=== PATIENT | male | born 1965 | race Caucasian/White ===

== ENCOUNTER 2018-02-07 11:56 | Emergency (ER) | payer MEDICARE, OTHER ==
[2018-02-07 12:00] VITALS: BP 112/73; PULSE 60; RESP 18; TEMP 98.5
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
[2018-02-07] MEDS ORDERED: LIDOCAINE 1% INJ 10MG/ML (20 ML MDV) SQ ONE (12:15)
[2018-02-07] MEDS ORDERED: SULFAMETHOX-TMP 800-160MG 1 EACH TAB PO STA (12:43)
[2018-02-07] MEDS ORDERED: CEPHALEXIN 500 MG CAP PO STA (12:43)
== END 2018-02-07 13:17 | disposition home or self-care (01) ==
LOC: EC 11:56
DX: L03.312 Cellulitis of back [any part except buttock and flank] (principal); G40.909 Epilepsy, unspecified, not intractable, without status epilepticus; F41.9 Anxiety disorder, unspecified; F17.200 Nicotine dependence, unspecified, uncomplicated; Z79.899 Other long term (current) drug therapy; Z86.14 Personal history of Methicillin resistant Staphylococcus aureus infection
CPT/HCPCS: 99283; 10060; J2001

== ENCOUNTER 2018-02-13 19:46 | Emergency (ER) | payer MEDICARE, OTHER ==
[2018-02-13 20:00] VITALS: RESP 16
[2018-02-13] MEDS ORDERED: KETOROLAC 30 MG/ML 1 ML VIAL IM STA (22:28)
[2018-02-13] MEDS ORDERED: ACET/COD 300 MG/30 MG STARTER PACK 6 TAB BTL PO STA (22:29)
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
[2018-02-13 22:45] VITALS: BP 142/70; PULSE 88; TEMP 98.2
== END 2018-02-13 22:45 | disposition home or self-care (01) ==
LOC: SUPCPDRO 19:46 → EC 19:46
DX: L02.212 Cutaneous abscess of back [any part, except buttock and flank] (principal); F17.200 Nicotine dependence, unspecified, uncomplicated
CPT/HCPCS: 99282; 96372; J1885

== ENCOUNTER 2019-01-13 19:16 | Inpatient (IN) | payer MEDICARE, MEDICAID ==
[2019-01-13] MEDS ORDERED: IPRATROPIUM-ALBUTEROL 3 ML NEB INHALATION STA (20:21)
--- NOTE | 2019-01-13 20:45 | XR ---
EXAMINATION TYPE: XR chest 2V DATE OF EXAM: 01/13/2019 COMPARISON: 12/14/2014 HISTORY: Cough TECHNIQUE: Frontal and lateral views of the chest are obtained. FINDINGS: Heart and mediastinum are normal. Lungs are clear. Diaphragm is normal. Bony thorax is int act. IMPRESSION: Normal chest. No change.
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
[2019-01-13 22:21] LABS: Amphetamine Screen,Urine Not Detected (NotDetected); Barbiturate Screen,Urine Not Detected (NotDetected); Benzodiazepines Screen,Urine Not Detected (NotDetected); Cocaine Screen,Urine Not Detected (NotDetected); Methadone Screen, Urine Not Detected (NotDetected); Opiate Screen,Urine Not Detected (NotDetected); Oxycodone Screen, Urine Not Detected (NotDetected); Phencyclidine Screen,Urine Not Detected (NotDetected); Tricyclic Antidepressant,Urine Not Detected (NotDetected); Urn Cannabinoid Scrn Not Detected (NotDetected)
[2019-01-13] MEDS ORDERED: MAGNESIUM HYDROXIDE 2,400 MG/10 ML CUP PO PRN (22:28)
[2019-01-13] MEDS ORDERED: ZIPRASIDONE 20 MG VIAL IM PRN (22:28)
[2019-01-13] MEDS ORDERED: MAG HYDROX/AL HYDROX/SIMETH 30 ML CUP PO PRN (22:28)
[2019-01-13 22:42] LABS: Appearance,Urine Clear (Clear); Bilirubin,Urine Negative (Negative); Blood,Urine Negative (Negative); Color,Urine Light Yellow; Glucose,Urine (UA) Negative (Negative); Ketones,Urine Negative (Negative); Leukocyte Esterase,Urine Negative (Negative); Nitrite,Urine Negative (Negative); PH, Urine 7.5 (5.0-8.0); Protein,Urine Negative (Negative); Urobilinogen,Urine <2.0 mg/dL (<2.0)
[2019-01-14] MEDS: MIRTAZAPINE 15 MG TAB PO SCH ×2 (00:25→22:06)
[2019-01-14 03:16] VITALS: BMI 19.8
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
[2019-01-14] MEDS: NICOTINE 14MG/24HR PATCH TRANSDERM SCH (09:05)
[2019-01-14] MEDS: ARIPiprazole 2 MG TAB PO SCH (09:05)
[2019-01-14 09:43] LABS: Basophils # (A) 0.1 k/uL (0-0.2); Basophils % (A) 1 %; Eosinophils # (A) 0.5 k/uL (0-0.7); Eosinophils % (A) 7 %; HCT 44.7 % (39.0-53.0); HGB 14.7 gm/dL (13.0-17.5); Lymphocytes % (A) 26 %; MCHC 32.8 g/dL (31.0-37.0); MCV 91.4 fL (80.0-100.0); Mean Platelet Volume 6.9; Monocytes # (A) 0.5 k/uL (0-1.0); Monocytes % (A) 7 %; Neutrophils # (A) 4.6 k/uL (1.3-7.7); Neutrophils % (A) 58 %; Platelet Count 353 k/uL (150-450); RDW 15.7 % (11.5-15.5); WBC 7.9 k/uL (3.8-10.6)
[2019-01-14 09:56] LABS: ALT 19 U/L (21-72); AST 25 U/L (17-59); African American GFR (CKD) >90 (>60 ml/min/1.73 sqM); Albumin 4.5 g/dL (3.5-5.0); Alkaline Phosphatase 71 U/L (38-126); Anion Gap 9 mmol/L; Bilirubin, Delta 0.2 mg/dL (0.0-0.2); Bilirubin,Unconjugated 0.3 mg/dL (0.0-1.1); Blood Urea Nitrogen 16 mg/dL (9-20); Calcium 10.1 mg/dL (8.4-10.2); Carbon Dioxide 30 mmol/L (22-30); Chloride 105 mmol/L (98-107); Cholesterol 159 mg/dL (<200); Glucose 73 mg/dL (74-99); HDL Cholesterol 52 mg/dL (40-60); LDL Cholesterol,Calculated 80 mg/dL (0-99); Potassium 4.7 mmol/L (3.5-5.1); Sodium 144 mmol/L (137-145); Total Bilirubin 0.5 mg/dL (0.2-1.3); Total Protein 7.3 g/dL (6.3-8.2); Triglycerides 136 mg/dL (<150)
[2019-01-14] MEDS: LORazepam 1 MG TAB PO PRN (12:50)
[2019-01-14] MEDS: ACETAMINOPHEN TAB 325 MG TAB PO PRN (12:50)
[2019-01-14 20:30] LABS: Hemoglobin A1C 5.7 % (4.0-6.0)
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
[2019-01-15] MEDS: NICOTINE 14MG/24HR PATCH TRANSDERM SCH ×2 (08:09→10:09)
[2019-01-15] MEDS: ARIPiprazole 2 MG TAB PO SCH (08:09)
--- NOTE | 2019-01-15 09:06 | P.PN ---
Progress Note - Text Interval history: The patient is found in the hallway he follows me to an interview room. He reports he was able to sleep last night. Appetite is improving. He states he had not been eating well for numerous days prior to coming into the hospital. He states that he slept yesterday and did not attend many groups. He plans on attending today. He has no questions or concerns regarding his medication. He had initially verbalizes a desire to go to inpatient chemical dependency treatment but later states he has to make a dental appointment on the to get his dentures. He is giving this further consideration. Mental status exam: The patient is a thin male dressed in hospital gowns. He is wearing his brace on his left hand. Eye contact is appropriate he has a strabismus of his right eye. He indicates his mood is still depressed anxious he still feels hopeless at times. He indicates that he feels safe in [facility]. He reports no homicidal ideation intent or plan. He reports no auditory or visual hallucinations or specific delusions. There is no observed evidence of psychosis. He demonstrates no tangential thinking loose associations or flight of ideas. He does not appear hypomanic or manic. Insight and judgment limited. He maintains a bland affect throughout the session. He has spontaneous speech that is fluent nonpressured. Impressions/plan: Depression, alcohol use disorder, methamphetamine use disorder, the patient will continue on the Remeron and Abilify as written. We will monitor him for safety and encourage participation in the milieu. Vital signs reviewed. We will continue the discussion regarding inpatient chemical dependency treatment. We will continue discussing his options for placement upon discharged mental health unit. He requires continued psychiatric hospitalization.
[2019-01-15] MEDS: MIRTAZAPINE 15 MG TAB PO SCH (20:56)
[2019-01-15] MEDS: ACETAMINOPHEN TAB 325 MG TAB PO PRN (20:56)
--- NOTE | 2019-01-16 09:13 | P.PN ---
Progress Note - Text Interval history: The patient is found in the hallway he follows me to an interview room. He reports that his mood is improving. He feels safe in the hospital. He has no questions or concerns regarding his psychotropic medication. He was able to sleep last night he states he's finally eating more normally. He has been attending groups. He indicates he only missed 1 group yesterday. He continues to have concern as to where he will stay upon discharge. He doesn't know if it safe for him to stay in this area or if he should move back to [place] where he has family members. Mental status exam: The patient is alert he is a thin male he is dressed in his own clothing he has showered. Eye contact is appropriate he has an internal strabismus of the right eye. He is wearing the brace on his left hand. Speech is fluent spontaneous nonpressured. He is pleasant cooperative and easily directed. He is reporting improvement of suicidal thoughts. He reports some decrease and hopelessness thinking. He reports no homicidal ideation intent or plan. He demonstrates no tangential thinking loose associations or flight of ideas. He reports no auditory or visual hallucinations or any specific delusions. There is no observed evidence of psychosis. He is oriented to person place and date. Insight and judgment improving. Impression/plan: Depression, alcohol use disorder, methamphetamine use disorder, the patient will continue on his current psychotropic medication. He appears to be clinically stabilizing. We will continue to encourage his full participation in the milieu. We will monitor him for safety. Vital signs reviewed.
[2019-01-16] MEDS: NICOTINE 14MG/24HR PATCH TRANSDERM SCH (09:30)
[2019-01-16] MEDS: ARIPiprazole 2 MG TAB PO SCH (09:30)
[2019-01-16] MEDS: IPRATROPIUM-ALBUTEROL 3 ML NEB INHALATION PRN ×2 (09:52→21:28)
[2019-01-16] MEDS: LORazepam 1 MG TAB PO PRN (11:59)
[2019-01-16] MEDS: MIRTAZAPINE 15 MG TAB PO SCH (21:42)
[2019-01-17] MEDS: IPRATROPIUM-ALBUTEROL 3 ML NEB INHALATION PRN ×2 (08:52→13:50)
--- NOTE | 2019-01-17 09:25 | P.PN ---
Progress Note - Text Interval history: The patient is found in his room he follows me to an interview room. He indicates he is doing better each day. Appetite has improved. He was reported to have slept 6 hours last night. He had a phone conversation with his girlfriend. He states he is coming to terms with the fact that he made a decision and has to stand by it. He is considering moving back to [place] if needed. He is hoping that a residence has been established for him by his political organizer in [place]. He has no questions or concerns regarding his medication. Mental status exam: The patient is alert he is dressed in his own clothing hygiene is adequate. Eye contact is good speech is fluent spontaneous nonpressured. He reports his mood is improving. Affect is becoming brighter. He denies having any acute suicidal ideation intent or plan is reporting no homicidal ideation intent or plan. There is no observed evidence of psychosis there is no observed evidence of hypomania or mayelin. Insight and judgment improving. He is oriented to person place and date. He demonstrates no verbal or physical aggressiveness or any involuntary repetitive movements. Plan: The patient will continue on his current psychotropic medication. Social work we asked to look into placement options. He may require alf placement. He is under the impression that his political organizer has arranged for an apartment in [place]. We will monitor vital signs. Encouraged to continue participating in the milieu. We will continue monitoring for safety.
[2019-01-17] MEDS: NICOTINE 14MG/24HR PATCH TRANSDERM SCH (09:30)
[2019-01-17] MEDS: ARIPiprazole 2 MG TAB PO SCH (09:31)
[2019-01-17] MEDS: LORazepam 1 MG TAB PO PRN (21:08)
[2019-01-17] MEDS: MIRTAZAPINE 15 MG TAB PO SCH (21:08)
--- NOTE | 2019-01-18 08:22 | PN ---
PROGRESS NOTE DATE OF SERVICE: 01/18/2019 CHIEF COMPLAINT: The patient had depression with suicide thinking. He was hopeless and had a plan of jumping into the [facility]. INTERVAL HISTORY: Patient has been doing fairly well. He had a quiet evening last night. He slept 7 hours last night. Today he has been up. He comes out in the day area. He does interact some with others. He attends about half the groups. He seems to be comfortable in the group setting. He feels that his mood has been improving. He is not voicing thoughts of harm. His main issue at this point is housing of which the social workers have been making an effort to coordinate placement. It is possible that his only option could be a correction. He tolerates his psychotropic medications. MENTAL STATUS: Patient gave good eye contact. Psychomotor activity was a little restless. He answered questions with direct responses. His thoughts were clear. His affect was in a reasonable range. His mood was quiet though not clearly down or depressed. He did not appear to be significantly distressed. ASSESSMENT: I will continue the current diagnosis and treatment plan. I will continue psychotropic medications the same. I reviewed discharge planning issues with the aids social worker in regards to housing. My understanding is that there needs to be some additional followup. I would anticipate the patient being discharged as early as tomorrow if housing issues can be put in place. CARLOS / ELIUN: [phone] /
[2019-01-18] MEDS: ARIPiprazole 2 MG TAB PO SCH (08:57)
[2019-01-18] MEDS: NICOTINE 14MG/24HR PATCH TRANSDERM SCH (09:54)
[2019-01-18] MEDS: IPRATROPIUM-ALBUTEROL 3 ML NEB INHALATION PRN (10:49)
[2019-01-18] MEDS: LORazepam 1 MG TAB PO PRN (16:36)
[2019-01-18] MEDS: ACETAMINOPHEN TAB 325 MG TAB PO PRN (16:36)
[2019-01-18] MEDS: MIRTAZAPINE 15 MG TAB PO SCH (20:20)
[2019-01-19 06:59] VITALS: BP 104/67; PULSE 62; RESP 18; TEMP 97.4
[2019-01-19] MEDS: NICOTINE 14MG/24HR PATCH TRANSDERM SCH (08:38)
[2019-01-19] MEDS: ARIPiprazole 2 MG TAB PO SCH (08:38)
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
== END 2019-01-19 13:13 | disposition home or self-care (01) | DRG 885 ==
LOC: EC 19:16 → 3MHU 22:24
PROVIDERS: ADMIT Psychiatry & Neurology Psychiatry; ATTEND Psychiatry & Neurology Psychiatry
DX: F33.2 Major depressive disorder, recurrent severe without psychotic features (principal); R45.851 Suicidal ideations; G83.24 Monoplegia of upper limb affecting left nondominant side; F15.10 Other stimulant abuse, uncomplicated; F17.200 Nicotine dependence, unspecified, uncomplicated; F10.21 Alcohol dependence, in remission; H50.9 Unspecified strabismus; G40.909 Epilepsy, unspecified, not intractable, without status epilepticus; H54.61 Unqualified visual loss, right eye, normal vision left eye; Z59.0 Homelessness; Z79.899 Other long term (current) drug therapy
CPT/HCPCS: 71046; 80053; 80061; 80306; 81003; 82075; 82248; 83036; 84443; 85025; 94640; 99285

== ENCOUNTER 2019-01-20 05:49 | Inpatient (IN) | payer MEDICARE, OTHER ==
[2019-01-20] MEDS ORDERED: SODIUM CHLORIDE 0.9% 1,000 ML IV STA (06:19)
[2019-01-20 06:43] LABS: Basophils # (A) 0.1 k/uL (0-0.2); Basophils % (A) 1 %; Eosinophils # (A) 0.1 k/uL (0-0.7); Eosinophils % (A) 1 %; HCT 41.9 % (39.0-53.0); HGB 14.7 gm/dL (13.0-17.5); Lymphocytes # (A) 2.5 k/uL (1.0-4.8); Lymphocytes % (A) 20 %; MCH 30.6 pg (25.0-35.0); MCHC 35.1 g/dL (31.0-37.0); MCV 87.1 fL (80.0-100.0); Mean Platelet Volume 6.4; Monocytes # (A) 0.8 k/uL (0-1.0); Monocytes % (A) 6 %; Neutrophils # (A) 8.7 k/uL (1.3-7.7); Neutrophils % (A) 70 %; Platelet Count 370 k/uL (150-450); RBC 4.81 m/uL (4.30-5.90); RDW 13.5 % (11.5-15.5); WBC 12.5 k/uL (3.8-10.6)
[2019-01-20] MEDS ORDERED: diphenhydrAMINE 50 MG/ML 1 ML VIAL IVP STA (06:44)
[2019-01-20] MEDS ORDERED: LORazepam 2 MG/ML INJ IV STA ×2 (06:44→15:54)
[2019-01-20 06:50] LABS: ALT 25 U/L (21-72); AST 43 U/L (17-59); Acetaminophen <10.0 ug/mL; African American GFR (CKD) >90 (>60 ml/min/1.73 sqM); Albumin 5.2 g/dL (3.5-5.0); Alkaline Phosphatase 86 U/L (38-126); Anion Gap 13 mmol/L; Blood Urea Nitrogen 17 mg/dL (9-20); Calcium 9.7 mg/dL (8.4-10.2); Carbon Dioxide 28 mmol/L (22-30); Chloride 101 mmol/L (98-107); Glucose 72 mg/dL (74-99); Potassium 3.5 mmol/L (3.5-5.1); Salicylate <1.0 mg/dL; Sodium 142 mmol/L (137-145); Total Bilirubin 0.7 mg/dL (0.2-1.3); Total Protein 8.4 g/dL (6.3-8.2)
[2019-01-20 06:53] LABS: Alcohol 194 mg/dL
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
[2019-01-20] MEDS ORDERED: SODIUM CHLORIDE 0.9% 1,000 ML IV ONE ×2 (06:58→15:39)
[2019-01-20] MEDS ORDERED: SODIUM CHLORIDE 0.9% 1,000 ML with MVI, ADULT NO.4 WITH VIT K 10 ML, THIAMINE 100 MG, F... IV ONE ×4 (07:45)
[2019-01-20 09:25] LABS: Glucose,Whole Blood 92 mg/dL (75-99)
[2019-01-20] MEDS ORDERED: METOCLOPRAMIDE 5 MG/ML 2 ML VIAL IVP STA (09:44)
[2019-01-20 12:01] LABS: Amphetamine Screen,Urine Not Detected (NotDetected); Barbiturate Screen,Urine Not Detected (NotDetected); Benzodiazepines Screen,Urine Detected (NotDetected); Cocaine Screen,Urine Not Detected (NotDetected); Methadone Screen, Urine Not Detected (NotDetected); Opiate Screen,Urine Not Detected (NotDetected); Oxycodone Screen, Urine Not Detected (NotDetected); Phencyclidine Screen,Urine Not Detected (NotDetected); Tricyclic Antidepressant,Urine Not Detected (NotDetected); Urn Cannabinoid Scrn Not Detected (NotDetected)
[2019-01-20 16:01] LABS: Amorphous Sediment,Urine Moderate /hpf; Appearance,Urine Turbid (Clear); Bilirubin,Urine Negative (Negative); Blood,Urine Negative (Negative); Color,Urine Yellow; Glucose,Urine (UA) Negative (Negative); Ketones,Urine Negative (Negative); Leukocyte Esterase,Urine Negative (Negative); Mucus,Urine Rare /hpf; Nitrite,Urine Negative (Negative); PH, Urine 5.5 (5.0-8.0); Protein,Urine Negative (Negative); Specific Gravity,Urine 1.016 (1.001-1.035); Urobilinogen,Urine <2.0 mg/dL (<2.0)
[2019-01-20] MEDS ORDERED: NALOXONE 0.4 MG/ML 1 ML VIAL IV PRN (16:12)
[2019-01-20] MEDS ORDERED: LORazepam 2 MG/ML INJ IV PRN ×3 (16:14)
[2019-01-20] MEDS ORDERED: THIAMINE 100 MG/ML 2 ML VIAL IM STA (16:14)
[2019-01-20] MEDS: THIAMINE 100 MG TAB PO SCH (18:16)
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
[2019-01-21 05:39] VITALS: BMI 17.2
[2019-01-21] MEDS: THIAMINE 100 MG TAB PO SCH ×2 (06:36→17:22)
[2019-01-21 07:24] LABS: Basophils # (A) 0.1 k/uL (0-0.2); Basophils % (A) 1 %; Eosinophils # (A) 0.5 k/uL (0-0.7); Eosinophils % (A) 5 %; HCT 38.8 % (39.0-53.0); HGB 13.2 gm/dL (13.0-17.5); Lymphocytes # (A) 2.1 k/uL (1.0-4.8); Lymphocytes % (A) 23 %; MCH 30.3 pg (25.0-35.0); MCV 89.2 fL (80.0-100.0); Mean Platelet Volume 6.7; Monocytes # (A) 0.6 k/uL (0-1.0); Monocytes % (A) 6 %; Neutrophils # (A) 5.9 k/uL (1.3-7.7); Neutrophils % (A) 64 %; Platelet Count 316 k/uL (150-450); RBC 4.35 m/uL (4.30-5.90); RDW 13.7 % (11.5-15.5); WBC 9.2 k/uL (3.8-10.6)
[2019-01-21 07:28] LABS: ALT 29 U/L (21-72); AST 37 U/L (17-59); African American GFR (CKD) >90 (>60 ml/min/1.73 sqM); Albumin 3.9 g/dL (3.5-5.0); Alkaline Phosphatase 62 U/L (38-126); Anion Gap 9 mmol/L; Blood Urea Nitrogen 15 mg/dL (9-20); Calcium 9.4 mg/dL (8.4-10.2); Carbon Dioxide 28 mmol/L (22-30); Chloride 105 mmol/L (98-107); Glucose 124 mg/dL (74-99); Potassium 4.1 mmol/L (3.5-5.1); Sodium 142 mmol/L (137-145); Total Bilirubin 0.7 mg/dL (0.2-1.3); Total Protein 6.4 g/dL (6.3-8.2)
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
[2019-01-21] MEDS ORDERED: MIRTAZAPINE 15 MG TAB PO SCH (22:45)
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
[2019-01-22] MEDS: THIAMINE 100 MG TAB PO SCH (06:49)
[2019-01-22 08:00] VITALS: BP 108/73; PULSE 80; RESP 16; TEMP 97
[2019-01-22] MEDS ORDERED: ARIPiprazole 2 MG TAB PO SCH (09:00)
== END 2019-01-22 11:48 | disposition home or self-care (01) | DRG 918 ==
LOC: EC 05:49 → 3SCARD 16:12
PROVIDERS: ADMIT Internal Medicine; ATTEND Internal Medicine
DX: T43.592A Poisoning by other antipsychotics and neuroleptics, intentional self-harm, initial encounter (principal); E87.2 Acidosis; T43.022A Poisoning by tetracyclic antidepressants, intentional self-harm, initial encounter; Z91.5 Personal history of self-harm; M50.30 Other cervical disc degeneration, unspecified cervical region; F32.9 Major depressive disorder, single episode, unspecified; F41.9 Anxiety disorder, unspecified; G40.909 Epilepsy, unspecified, not intractable, without status epilepticus; D72.829 Elevated white blood cell count, unspecified; G89.29 Other chronic pain; M54.9 Dorsalgia, unspecified; F17.210 Nicotine dependence, cigarettes, uncomplicated; F15.11 Other stimulant abuse, in remission; F10.21 Alcohol dependence, in remission; Z71.6 Tobacco abuse counseling; Z79.899 Other long term (current) drug therapy; Z59.0 Homelessness; Z86.14 Personal history of Methicillin resistant Staphylococcus aureus infection; Z87.820 Personal history of traumatic brain injury
CPT/HCPCS: 36415; 80053; 80306; 80320; 80329; 81001; 82075; 83520; 83605; 83735; 84484; 85025; 93005; 96361; 96365; 96366; 96372; 96375; 96376; 99285

== ENCOUNTER 2022-10-24 18:14 | Emergency (ER) | payer MEDICARE, OTHER ==
--- NOTE | 2022-10-24 20:22 | XR ---
PROCEDURE: XR ribs LT w pa chest xray - 5V DATE AND TIME: 10/24/2022 8:04 PM CLINICAL INDICATION: lt lower pain; fall TECHNIQUE: 5 views were obtained COMPARISON: None FINDINGS: There are mildly-displaced left 9th and 10th rib fractures laterally, with an associated small left p leural effusion. There is no left pneumothorax. There are no other fractures. No other acute findings. IMPRESSION: Left lateral 9th and 10th rib fractures.
[2022-10-24] MEDS ORDERED: IBUPROFEN 600 MG TAB PO STA (21:20)
[2022-10-24] MEDS ORDERED: HYDROcodone/APAP 5-325MG 1 EACH TAB PO STA (21:20)
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
[2022-10-24] MEDS ORDERED: HYDROmorphone 0.5 MG/0.5 ML SYRINGE IM STA (22:26)
[2022-10-25 00:16] VITALS: BP 148/94; PULSE 82; RESP 18; TEMP 97.6
== END 2022-10-25 00:16 | disposition home or self-care (01) ==
LOC: EC 18:14
DX: S22.42XA Multiple fractures of ribs, left side, initial encounter for closed fracture (principal); F17.200 Nicotine dependence, unspecified, uncomplicated; F12.90 Cannabis use, unspecified, uncomplicated; Z86.59 Personal history of other mental and behavioral disorders; W01.190A Fall on same level from slipping, tripping and stumbling with subsequent striking against furniture, initial encounter; Y92.009 Unspecified place in unspecified non-institutional (private) residence as the place of occurrence of the external cause
CPT/HCPCS: 71101; 99283; 96372; J1170

== ENCOUNTER 2022-11-09 04:38 | Emergency (ER) | payer MEDICARE, OTHER ==
[2022-11-09] MEDS ORDERED: LIDOCAINE 5% PATCH TOPICAL STA (04:45)
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
[2022-11-09 04:49] VITALS: TEMP 98.1
[2022-11-09 05:48] VITALS: BP 133/84; PULSE 80; RESP 20
--- NOTE | 2022-11-09 06:39 | XR ---
EXAMINATION TYPE: XR chest 2V DATE OF EXAM: 11/09/2022 4:59 AM COMPARISON: Chest radiographs from 10/24/2022 TECHNIQUE: XR chest 2V view. CLINICAL INDICATION:Male, 57 years old with history of dyspnea; FINDINGS: Lungs/Pleura: There is no evidence of pleural effusion, focal consolidation, or pneumothorax. Chroni c senescent parenchymal change. Pulmonary vascularity: Unremarkable. Heart/mediastinum: Cardiomediastinal silhouette is unremarkable. Atherosclerotic calcifications are seen in the aorta. Musculoskeletal: Redemonstration of minimally displaced left lateral ninth and 10th rib fractures. No callus formation identified. Partial visualization of cervical fusion hardware. IMPRESSION: 1. No acute cardiopulmonary disease/process. 2. Redemonstration of minimally displaced left lateral ninth and 10th rib fractures. No callus forma tion identified. No pneumothorax.
== END 2022-11-09 05:51 | disposition home or self-care (01) ==
LOC: EC 04:38
DX: S22.42XA Multiple fractures of ribs, left side, initial encounter for closed fracture (principal); F17.200 Nicotine dependence, unspecified, uncomplicated; F12.90 Cannabis use, unspecified, uncomplicated; Z86.59 Personal history of other mental and behavioral disorders; W06.XXXA Fall from bed, initial encounter
CPT/HCPCS: 71046; 93005; 99283

== ENCOUNTER 2023-02-23 15:02 | Emergency (ER) | payer MEDICARE, OTHER ==
[2023-02-23 15:26] VITALS: PULSE 83; TEMP 99.1
[2023-02-23] MEDS ORDERED: oxyCODONE-APAP 10-325MG 1 EACH TAB PO STA (15:31)
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
[2023-02-23] MEDS ORDERED: KETOROLAC 15 MG/ML 1 ML VIAL IM STA (15:32)
--- NOTE | 2023-02-23 16:20 | XR ---
Right humerus. HISTORY: Pain. COMPARISON: None TECHNIQUE: 3 views the right humerus were obtained. FINDINGS: There is no fracture or focal intraosseous abnormality. There is no cortical destruction or periostea l reaction. There are no soft tissue abnormalities. IMPRESSION: No significant abnormality seen.
--- NOTE | 2023-02-23 16:36 | CT ---
EXAMINATION TYPE: CT cervical spine wo con DATE OF EXAM: 02/23/2023 COMPARISON: None HISTORY: neck pain/burning and down right arm x2 weeks CT DLP: 268.1 mGycm Automated exposure control for dose reduction was used. TECHNIQUE: CT scan of the cervical spine is obtained without contrast, axial images are obtained, sa gittal and coronal reformatted images are also reviewed. FINDINGS: The craniovertebral junction relationships and prevertebral soft tissues are normal. There is anterior metallic and interdisc fusion at the C5-6 level. Allograft the vertebral segments a re normal in height and alignment and there is no fracture or subluxation. There is mild to moderate disc space narrowing and spondylosis at the C6-7 level indicating mild to m oderate degenerative disease. There is mild spondylosis at the C2-3 C4-5 levels indicating mild degen erative disc disease. There is mild osteoarthritic change of the facets and uncovertebral joints in the mid lower cervical spine. There is mild bony neural foraminal encroachment at C6-7 on the right and moderate bony neural forami nal encroachment at C6-7 on the left. There is no significant bony encroachment of the cervical canal . The paraspinal soft tissues unremarkable. IMPRESSION: 1. Postsurgical changes at the C5-6 level as described above. 2. Mild to moderate degenerative disc disease and osteoarthritic change as described above. 3. Bilateral bony neural foraminal encroachment at C6-7, left greater than right as described above.
[2023-02-23 18:19] VITALS: BP 114/82; RESP 18
== END 2023-02-23 18:08 | disposition home or self-care (01) ==
LOC: EC 15:02
DX: S16.1XXA Strain of muscle, fascia and tendon at neck level, initial encounter (principal); M54.12 Radiculopathy, cervical region; M50.30 Other cervical disc degeneration, unspecified cervical region; F12.90 Cannabis use, unspecified, uncomplicated; F17.200 Nicotine dependence, unspecified, uncomplicated; Z86.59 Personal history of other mental and behavioral disorders; X58.XXXA Exposure to other specified factors, initial encounter
CPT/HCPCS: 73060; 72125; 99284; 96372; J1885

== ENCOUNTER 2023-05-29 00:51 | Inpatient (IN) | payer MEDICARE, OTHER ==
[2023-05-29 01:03] LABS: Glucose,Whole Blood 101 mg/dL (70-110)
[2023-05-29] MEDS ORDERED: PROPOFOL 10 MG/ML 20 ML VIAL IV ONE ×3 (01:03→06:23)
[2023-05-29] MEDS ORDERED: MORPHINE SULFATE 4 MG/ML SYRINGE IVP STA (01:04)
[2023-05-29 01:19] LABS: Basophils # (A) 0.1 k/uL (0-0.2); Basophils % (A) 0 %; Eosinophils # (A) 0.2 k/uL (0-0.7); Eosinophils % (A) 1 %; HGB 14.6 gm/dL (13.0-17.5); Lymphocytes # (A) 2.1 k/uL (1.0-4.8); Lymphocytes % (A) 12 %; MCH 31.1 pg (25.0-35.0); MCHC 33.8 g/dL (31.0-37.0); MCV 91.8 fL (80.0-100.0); Mean Platelet Volume 7.6; Monocytes # (A) 0.5 k/uL (0-1.0); Monocytes % (A) 3 %; Neutrophils # (A) 14.1 k/uL (1.3-7.7); Neutrophils % (A) 82 %; Platelet Count 360 k/uL (150-450); RBC 4.69 m/uL (4.30-5.90); RDW 12.8 % (11.5-15.5); WBC 17.1 k/uL (3.8-10.6)
[2023-05-29 01:32] LABS: ALT 21 U/L (4-49); AST 36 U/L (17-59); African American GFR (CKD) >90 (>60 ml/min/1.73 sqM); Albumin 5.1 g/dL (3.5-5.0); Alkaline Phosphatase 123 U/L (38-126); Anion Gap 16 mmol/L; Blood Urea Nitrogen 11 mg/dL (9-20); Calcium 9.4 mg/dL (8.4-10.2); Carbon Dioxide 18 mmol/L (22-30); Chloride 101 mmol/L (98-107); Glucose 100 mg/dL (74-99); Non-African American GFR(CKD) >90 (>60 ml/min/1.73 sqM); Potassium 4.3 mmol/L (3.5-5.1); Sodium 135 mmol/L (137-145); Total Bilirubin 0.4 mg/dL (0.2-1.3); Total Protein 8.2 g/dL (6.3-8.2)
--- NOTE | 2023-05-29 01:46 | XR ---
EXAM: XR Left Ankle Complete, 3 or More Views CLINICAL HISTORY: ITS.REASON XR Reason: open fracture TECHNIQUE: Frontal, lateral and oblique views of the left ankle. COMPARISON: No relevant prior studies available. FINDINGS: Bones/joints: There is a moderately displaced fracture of the bilateral malleoli with dislocation of the tibiotalar joint. Soft tissues: Subcutaneous air over the anterior tibia. IMPRESSION: Dislocation of the tibiotalar joint. Recommend color Doppler evaluation of the distal arteries. Moderate displaced fractures of the bilateral malleoli
--- NOTE | 2023-05-29 02:00 | CT ---
EXAM: CT Head Without Intravenous Contrast CLINICAL HISTORY: ITS.REASON CT Reason: fall, possible head injury TECHNIQUE: Axial computed tomography images of the head/brain without intravenous contrast. CTDI is 45.2 mGy and DLP is 999 mGy-cm. This CT exam was performed using one or more of the following dose reduction techniques: automated exposure control, adjustment of the mA and/or kV according to patient size, and/or use of iterative reconstruction technique. COMPARISON: No relevant prior studies available. FINDINGS: Brain: Unremarkable. No hemorrhage. No significant white matter disease. No edema. Ventricles: Unremarkable. No ventriculomegaly. Bones/joints: Remote nasal bone fracture deformities. No acute fracture. Soft tissues: Unremarkable. Sinuses: Chronic maxillary and ethmoid sinusitis. No acute sinusitis. Mastoid air cells: Unremarkable as visualized. No mastoid effusion. IMPRESSION: No evidence of acute intracranial pathology. EXAM: CT Cervical Spine Without Intravenous Contrast CLINICAL HISTORY: ITS.REASON CT Reason: fall, possible head injury TECHNIQUE: Axial computed tomography images of the cervical spine without intravenous contrast. CTDI is 10.3 mGy and DLP is 301.6 mGy-cm. This CT exam was performed using one or more of the following dose reduction techniques: automated exposure control, adjustment of the mA and/or kV according to patient size, and/or use of iterative reconstruction technique. COMPARISON: No relevant prior studies available. FINDINGS: Vertebrae: Status post anterior fusion of C5 and C6 with expected postsurgical changes. No acute fracture. Discs/spinal canal/neural foramina: No acute findings. Congenitally narrow spinal canal. Critical spinal canal stenosis at C4-5 and C6-7. Soft tissues: Prominent cervical lymph nodes. Mild centrilobular emphysematous changes. IMPRESSION: No evidence of acute cervical spine pathology. Critical spinal canal stenosis at C4-5 and C6-7. Recommend MRI of the cervical spine to evaluate for myelopathy.
[2023-05-29] MEDS ORDERED: NALOXONE 0.4 MG/ML 1 ML VIAL IV PRN ×2 (02:56→08:17)
[2023-05-29] MEDS ORDERED: MORPHINE SULFATE 4 MG/ML SYRINGE IV PRN (02:56)
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
[2023-05-29] MEDS ORDERED: LORazepam 1 MG TAB PO PRN (03:08)
[2023-05-29] MEDS ORDERED: LORazepam 2 MG/ML INJ IV PRN (03:08)
[2023-05-29] MEDS ORDERED: THIAMINE 100 MG/ML 2 ML VIAL IM STA (03:08)
[2023-05-29] MEDS: SODIUM CHLORIDE 0.9% 1,000 ML IV SCH ×5 (03:14→23:47)
--- NOTE | 2023-05-29 04:24 | XR ---
EXAM: XR Left Ankle Complete, 3 or More Views CLINICAL HISTORY: XR Reason: post reduction TECHNIQUE: Frontal, lateral and oblique views of the left ankle. COMPARISON: No relevant prior studies available. FINDINGS: Bones/joints: Oblique fracture of the distal fibula angling 2.4 cm superiorly from the level of the tibial plafond and with 5 mm posterior displacement of the distal fracture fragment. Near anatomic alignment of medial malleolus fracture post reduction. The ankle mortise is well aligned post splinting. Soft tissues: Probable gas in the soft tissues over the ankle suggesting open fracture or laceration. No foreign body is seen. Fine detail is obscured by splint material. IMPRESSION: 1. Oblique fracture of the distal fibula angling 2.4 cm superiorly from the level of the tibial plafond and with 5 mm posterior displacement of the distal fracture fragment. 2. Near anatomic alignment of medial malleolus fracture post reduction. The ankle mortise is well aligned post splinting. 3. Probable gas in the soft tissues over the ankle suggesting open fracture or laceration. No foreign body is seen. Fine detail is obscured by splint material.
[2023-05-29] MEDS ORDERED: VANCOMYCIN 1,000 MG in SODIUM CHLORIDE 0.9% 250 ML IVPB PRN (06:00)
[2023-05-29] MEDS ORDERED: fentaNYL (PF) 50 MCG/ML 2 ML AMP ONE (06:23)
[2023-05-29] MEDS ORDERED: SUCCINYLCHOLINE CHLORIDE 200 MG/10 ML VIAL IV ONE (06:23)
[2023-05-29] MEDS ORDERED: PHENYLEPHRINE 10 MG/ML VIAL ONE (06:23)
[2023-05-29] MEDS ORDERED: LIDOCAINE 1% INJ 10MG/ML (20 ML MDV) ONE (06:23)
[2023-05-29] MEDS ORDERED: GLYCOPYRROLATE 0.2 MG/ML 2 ML VIAL ONE (06:23)
[2023-05-29] MEDS ORDERED: ROCURONIUM 10 MG/ML (5 ML VIAL) IV ONE (06:23)
[2023-05-29] MEDS ORDERED: DEXAMETHASONE SOD PHOSPHATE 4 MG/ML 1 ML VIAL ONE (06:23)
[2023-05-29] MEDS ORDERED: NEOSTIGMINE 1 MG/ML 10 ML VIAL ONE (06:23)
[2023-05-29] MEDS ORDERED: HYDROmorphone (PF) 1 MG/ML ONE (06:23)
[2023-05-29] MEDS ORDERED: ONDANSETRON 4 MG/2 ML VIAL ONE (06:23)
[2023-05-29] MEDS ORDERED: IV FLUID CONTINUATION 900 ML IV ONE (06:28)
[2023-05-29] MEDS ORDERED: VANCOMYCIN 1,000 MG VIAL IVPB ONE (07:14)
[2023-05-29] MEDS ORDERED: LACTATED RINGERS 1,000 ML IV ONE ×3 (07:58→10:30)
--- NOTE | 2023-05-29 08:13 | FL ---
EXAMINATION TYPE: FL guidance operating room, XR ankle complete RT Intraoperative/procedural fluorosc opic services were provided. Total fluoroscopy time is 31.7 seconds with a total of 5 submitted image s to PACS. Please see the operative/procedural note for further details. DAP: 0.6899 Gycm2
[2023-05-29] MEDS ORDERED: diazePAM 5 MG TAB PO PRN (08:16)
[2023-05-29] MEDS ORDERED: HYDROmorphone 0.5 MG/0.5 ML SYRINGE IVP PRN (08:16)
[2023-05-29] MEDS ORDERED: ONDANSETRON 4 MG/2 ML VIAL IVP PRN (08:19)
[2023-05-29] MEDS ORDERED: HYDROmorphone 0.5 MG/0.5 ML SYRINGE IVP ONE (08:26)
[2023-05-29] MEDS ORDERED: DULoxetine HCL 30 MG CAPSULE.DR PO SCH (08:30)
--- NOTE | 2023-05-29 08:43 | P.OP ---
Date of Procedure: 05/29/23 Preoperative Diagnosis: Grade 2 open fracture dislocation left ankle, traumatic due to fall Bimalleolar grade 2 open open ankle fracture Postoperative Diagnosis: Same Anesthesia: GETA Pathology: none sent Condition: stable Disposition: PACU Description of Procedure: BRIEF OPERATIVE NOTE Preoperative Diagnosis: Grade 2 open fracture dislocation left ankle, traumatic due to fall Bimalleolar grade 2 open open ankle fracture Postoperative Diagnosis: Same Procedure: Irrigation and excisional debridement of grade 2 open left ankle fracture at the 5 cm open wound at the medial aspect of the ankle Open reduction internal fixation of right distal fibula and tibia fracture Use of fluoroscopic guidance Surgeon: Dr. Baca Is Architect: assistant professor in family studies who is present throughout the entire the case persistence during positioning, dissection, exposure, visualization, and all crucial elements of the case as well as closure. Anesthesia: General anesthesia Estimated blood loss: Less than 75 mL Tourniquet time: None Specimen: None Complications: None apparent Components implanted: Synthes small frag one third semitubular plate with 8 screws with comminution of 3.5 cortical and 4.0 cancellus screws 2 Disposition: To recovery room in good stable condition. OPERATIVE INDICATIONS The patient had an acute injury today when he slipped and fell on the ice. Apparently the patient was severely intoxicated with a blood alcohol level greater than 380. He was at home when he fell and was walking on a fracture dislocation when his friend noticed that he was bleeding severely. He presented to the emergency room was open ankle fracture dislocation. He had closed reduction of the dislocation in the emergency room by the ER staff appropriate ly. He was splinted and we're involved in the case. He had a very obvious open fracture with approximately 5 cm laceration transversely at the level of the medial malleolus. He had neurovascular status intact at his ankle foot and toes. He was able to answer questions appropriately. He had not had any pain or issues prior to her fall. He had obvious displaced displacement and comminuted fracture at the lateral malleolus with displacement medial malleolus as well. I discussed the risk of occasions alternatives and benefits of surgery in relation to the injury. I tried to explain patient the severity of his injury particularly in regards the open nature of his chronic alcohol use. He open fracture significant increase the possibility of consultations including nonunion malunion infection and severe debility and his left lower extremity left ankle. There is severe comminution as well and it is going to be difficult to get this to heal given the open nature and his medical status. I discussed the risk of bleeding risk and infection risk and need for further surgery risk of decreased loss of motion loss function malunion nonunion hardware failure nerve damage as well as, occasions with surgery were explained. I answered her questions best my ability and he elected proceed with surgical intervention. OPERATIVE SUMMARY After discussing all the risks, patient alternatives and benefits at length, the patient elected to proceed with surgical intervention, signed informed consent, and presented for their procedure. The patient was seen and examined in the preoperative holding area and the surgical site was marked. The patient was given antibiotics and brought to the operating room. The patient was sedated and intubated by anesthesia in standard fashion. The patient was positioned on to the operating room table in a supine position with a pad under the left hip. We were careful to pad any bony prominences and pressure points. We were careful to maintain the patient's cervical spine and good neutral alignment and position throughout. We used C-arm machines to establish fluoroscopic guidance in AP and lateral positions. We were able to localize the fractures appropriately. The patient was prepped and draped in a normal standard fashion. An appropriate timeout and keystone protocol performed. We were able to proceed with the surgery. The open fracture was very obvious. There was slowly using blood at the area. There is some denuded tissue around the margins of the scan and this was excised and removed. The laceration is approximately 5-6 cm. The medial malleolus had obvious displacement. I was able to expose into the fracture site and into the joint itself. The wound was then copiously irrigated and suctioned dry with greater than 3 L of antibiotic irrigation. With the area cleaned appropriately and was able to be reduced the medial malleolus. I turned my attention to the lateral malleolus. An incision was made over the lateral aspect of the ankle and I dissected down to the distal fibula appropriately. The fracture was obvious and I was able to mobilize some of the fragments and elevated some of the periosteum leaving as much is intact as possible. There was significant comminution with multiple small fragments and bone loss particularly at the lateral aspect of the fibula around the fracture site. The main fragments were mobilized and brought to position. I performed a gentle reduction techniques in order to get the fractures well aligned and use of bone clamp to get good provisional fixation. There was significant bone loss at the lateral aspect but good overall alignment and position. Multiple small fragments were devascularized and not able to be incorporated. This was confirmed with C-arm guidance. I was then able to measure and position a one third semitubular 8 hole plate and contoured appropriately over the distal fibula and over the fracture site proximally and distally. There was no way to establish an interfragmentary screw. I was able to position the plate and get adequate alignment of the fracture fragments proximally distally and within the fracture itself. I was able to start placing the plate in place. I was able to remove the bone clamp in place the plate laterally and placed cortical screws proximally and cancellous screws distally to get excellent fixation at a near anatomic position. This was confirmed with C-arm guidance. The fibula was out to length and stabilized. We turned my attention to the medial malleolus. I had good reduction at the medial malleolus in near anatomic position. I was able establish a small stab incision and place the guide pins through the distal tip the medial malleolus across fractured ends to the distal tibia. These were drilled with cannulated drill and cannulated screws were placed 2 with good fixation and good stability at the medial malleolus being able to avoid the joint space. With medial and lateral fixation establish and then was able to test and stress the ankle to evaluate for any syndesmotic disruption. I performed medial and lateral varus and valgus stress at the ankle after fixation was performed and there is no evidence of any widening or displacement of the syndesmosis or the ankle mortise. I do not feel we needed any further fixation. We were able to proceed with closure. Deep layers were closed with 2-0 Vicryl subcu tissues closed 2-0 Vicryl and skin was closed with jose on the lateral side. On the medial side at the open wound I used 2-0 PDS at the subcutanius tissue and then used 3-0 nylon for horizontal mattress stitches for the skin The wound was cleaned and dried and dressed with the appropriate dressing. We used a bulky Ritchie dressing with bilateral and posterior support. I placed a sugar tong and posterior mold well-padded well molded splint at the right lower leg. The drapes were broken down. The patient was gently rolled back onto their hospital bed being careful to maintain their cervical spine and good neutral alignment and position. They were woken up by anesthesia, extubated, and brought to the recovery room in good stable condition. The patient will need IV antibiotics for at least the next 48 hours due to the open fracture. The patient will be able to be admitted to the hospital for prolonged antibiotics reviewed twice a day for at least 48 hours, appropriate management and care with strict nonweightbearing left lower extremity, and for appropriate postoperative care, medical management and monitoring. He will need close observation for potential alcohol withdrawal and medicine is seeing him for this and for medical management. We will continue to follow them closely about the postoperative course. .
--- NOTE | 2023-05-29 09:17 | ED ---
Medical Decision Making - Lab Data Result diagrams: 05/29/23 01:06 05/29/23 01:06 Lab Results 05/29/23 05/29/23 05/29/23 Range/Units 01:02 01:06 01:06 WBC 17.1 H (3.8-10.6) k/uL RBC 4.69 (4.30-5.90) m/uL Hgb 14.6 (13.0-17.5) gm/dL Hct 43.0 (39.0-53.0) % MCV 91.8 (80.0-100.0) fL MCH 31.1 (25.0-35.0) pg MCHC 33.8 (31.0-37.0) g/dL RDW 12.8 (11.5-15.5) % Plt Count 360 (150-450) k/uL MPV 7.6 Neutrophils % 82 % Lymphocytes % 12 % Monocytes % 3 % Eosinophils % 1 % Basophils % 0 % Neutrophils # 14.1 H (1.3-7.7) k/uL Lymphocytes # 2.1 (1.0-4.8) k/uL Monocytes # 0.5 (0-1.0) k/uL Eosinophils # 0.2 (0-0.7) k/uL Basophils # 0.1 (0-0.2) k/uL Sodium 135 L (137-145) mmol/L Potassium 4.3 (3.5-5.1) mmol/L Chloride 101 (98-107) mmol/L Carbon Dioxide 18 L (22-30) mmol/L Anion Gap 16 mmol/L BUN 11 (9-20) mg/dL Creatinine 0.85 (0.66-1.25) mg/dL Est GFR (CKD-EPI)AfAm >90 (>60 ml/min/1.73 sqM) Est GFR (CKD-EPI)NonAf >90 (>60 ml/min/1.73 sqM) Glucose 100 H (74-99) mg/dL POC Glucose (mg/dL) 101 (70-110) mg/dL POC Glu Merchandise Flow Manager ID Owen Myrick Calcium 9.4 (8.4-10.2) mg/dL Total Bilirubin 0.4 (0.2-1.3) mg/dL AST 36 (17-59) U/L ALT 21 (4-49) U/L Alkaline Phosphatase 123 (38-126) U/L Total Protein 8.2 (6.3-8.2) g/dL Albumin 5.1 H (3.5-5.0) g/dL Serum Alcohol mg/dL 05/29/23 Range/Units 01:09 WBC (3.8-10.6) k/uL RBC (4.30-5.90) m/uL Hgb (13.0-17.5) gm/dL Hct (39.0-53.0) % MCV (80.0-100.0) fL MCH (25.0-35.0) pg MCHC (31.0-37.0) g/dL RDW (11.5-15.5) % Plt Count (150-450) k/uL MPV Neutrophils % % Lymphocytes % % Monocytes % % Eosinophils % % Basophils % % Neutrophils # (1.3-7.7) k/uL Lymphocytes # (1.0-4.8) k/uL Monocytes # (0-1.0) k/uL Eosinophils # (0-0.7) k/uL Basophils # (0-0.2) k/uL Sodium (137-145) mmol/L Potassium (3.5-5.1) mmol/L Chloride (98-107) mmol/L Carbon Dioxide (22-30) mmol/L Anion Gap mmol/L BUN (9-20) mg/dL Creatinine (0.66-1.25) mg/dL Est GFR (CKD-EPI)AfAm (>60 ml/min/1.73 sqM) Est GFR (CKD-EPI)NonAf (>60 ml/min/1.73 sqM) Glucose (74-99) mg/dL POC Glucose (mg/dL) (70-110) mg/dL POC Glu Merchandise Flow Manager ID Calcium (8.4-10.2) mg/dL Total Bilirubin (0.2-1.3) mg/dL AST (17-59) U/L ALT (4-49) U/L Alkaline Phosphatase (38-126) U/L Total Protein (6.3-8.2) g/dL Albumin (3.5-5.0) g/dL Serum Alcohol 283 H* mg/dL Disposition Clinical Impression: Bimalleolar ankle fracture, Fracture dislocation of ankle joint, Fall, Alcohol intoxication, Open ankle fracture Disposition: ADMITTED IP TO THIS [facility] Condition: Stable Procedures - [place] Protocol (Time Out) Procedure Performed:: Left ankel reduction Performing Provider: Shell Smalls Nurse: Vicki Hernandez Respiratory Therapist: Bernadine Cleaning Patient Identification (2 identifiers required): Chart, Verbal, Arm Band, Name, Birthdate Patient/Legal Setter Up has Confirmed: Identity, Site, Procedure, Consent Site: Left ankle Site Marked: Yes Final Confirmation: Confirmed w/Provider - Orthopedic Fracture Reduction Fracture #1 Consent Obtained: written consent Side: left Fracture Reduction Location: tibia Analgesia: procedural sedation Technique: direct manipulation, traction/counter-traction Post Reduction X-rays Demonstrate: acceptable reduction Post-Reduction Neuro Exam: intact Post-Reduction Vascular Exam: intact Splint Applied: Yes Patient Tolerated Procedure: well, no complications Additional Comments: Traction held with dorsiflexion to reduce ankle dislocation and fibular fracture - Orthopedic Splinting/Casting Injury #1 Side: left Lower Extremity Injury Location: short leg Lower Extremity Immobilizer: posterior splint, stirrup splint - Procedural Sedation *Procedural Sedation Start Time: 01:45 *Procedural Sedation Stop Time: 02:20 *Risks,benefits, and alternative therapies discussed?: Yes *Patient indicates understanding of risk/benefit discussion?: Yes *Indications: fracture/dislocation reduction *Previous Adverse Reaction to Anesthesia/Sedation?: No *ASA Class: II *Mallampati Airway Score: 1 *Time of Last PO Intake: 15:00 Preparation: conveyor monitor applied, pulse oximeter, capnometry used, supplemental O2 applied, reversal agents at bedside, suction/airway equipment at bedside IV Propofol Dose (mgs): 80 Complications: none Patient Tolerated Procedure: well, no complications
[2023-05-29] MEDS ORDERED: ALBUMIN HUMAN 5% (12.5gm) 250 ML BOTTLE IVPB ONE ×2 (10:46→11:17)
[2023-05-29] MEDS: SENNOSIDES-DOCUSATE SODIUM 1 EACH TAB PO SCH ×2 (13:14→20:19)
[2023-05-29] MEDS: HYDROmorphone 1 MG/ML 1 ML SYRINGE IVP PRN ×2 (13:23→20:17)
[2023-05-29] MEDS: DULoxetine HCL 30 MG CAPSULE.DR PO SCH (15:24)
[2023-05-29 18:31] LABS: Basophils # (A) 0.01 X 10*3/uL (0.00-0.10); Basophils % (A) 0.2 %; Eosinophils # (A) 0 X 10*3/uL (0.04-0.35); Eosinophils % (A) 0 %; HGB 10.2 g/dL (13.0-17.0); Lymphocytes # (A) 0.48 X 10*3/uL (0.90-5.00); Lymphocytes % (A) 7.7 %; MCV 91.2 FL (80.0-97.0); Monocytes # (A) 0.22 X 10*3/uL (0.20-1.00); Monocytes % (A) 3.5 %; NRBC Per 100 WBC 0 X 10*3/uL (0.00-0.01); Neutrophils # (A) 5.47 X 10*3/uL (1.80-7.70); Neutrophils % (A) 88.3 %; Platelet Count 286 X 10*3/uL (140-440); RBC 3.29 X 10*6/uL (4.40-5.60); RDW 12.7 % (11.5-14.5)
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
[2023-05-29] MEDS: CYCLOBENZAPRINE 5 MG TAB PO PRN (23:45)
[2023-05-30] MEDS: HYDROmorphone 1 MG/ML 1 ML SYRINGE IVP PRN ×5 (01:35→20:07)
[2023-05-30] MEDS ORDERED: FUROSEMIDE 10 MG/ML 2 ML VIAL IV STA (03:33)
[2023-05-30] MEDS: SODIUM CHLORIDE 0.9% 1,000 ML IV SCH ×3 (03:41→22:40)
[2023-05-30] MEDS ORDERED: HYDROmorphone 0.5 MG/0.5 ML SYRINGE IVP PRN (07:00)
[2023-05-30 08:45] LABS: Basophils # (A) 0.02 X 10*3/uL (0.00-0.10); Basophils % (A) 0.2 %; Eosinophils # (A) 0.09 X 10*3/uL (0.04-0.35); Eosinophils % (A) 0.7 %; HCT 31.1 % (39.6-50.0); HGB 10.5 g/dL (13.0-17.0); Lymphocytes # (A) 2.17 X 10*3/uL (0.90-5.00); Lymphocytes % (A) 17.5 %; MCH 31.2 pg (27.0-32.0); MCHC 33.8 g/dL (32.0-37.0); MCV 92.3 FL (80.0-97.0); Mean Platelet Volume 9.9 FL (9.5-12.2); Monocytes # (A) 0.98 X 10*3/uL (0.20-1.00); Monocytes % (A) 7.9 %; NRBC Per 100 WBC 0 X 10*3/uL (0.00-0.01); Neutrophils # (A) 9.08 X 10*3/uL (1.80-7.70); Neutrophils % (A) 73.3 %; Platelet Count 289 X 10*3/uL (140-440); RBC 3.37 X 10*6/uL (4.40-5.60); RDW 12.8 % (11.5-14.5); WBC 12.39 X 10*3/uL (4.50-10.00)
[2023-05-30] MEDS: THIAMINE 100 MG TAB PO SCH (09:22)
[2023-05-30] MEDS: SENNOSIDES-DOCUSATE SODIUM 1 EACH TAB PO SCH ×2 (09:22→20:06)
[2023-05-30] MEDS: DULoxetine HCL 30 MG CAPSULE.DR PO SCH (09:22)
[2023-05-30 09:27] LABS: BUN/Creat Ratio 17.56 Ratio (12.00-20.00); Blood Urea Nitrogen 15.8 mg/dL (9.0-27.0); Calcium 9.1 mg/dL (8.7-10.3); Carbon Dioxide 27.4 mmol/L (21.6-31.8); Chloride 101 mmol/L (96-109); Glucose 104 mg/dL (70-110); Potassium 4.2 mmol/L (3.5-5.5); Sodium 139 mmol/L (135-145)
[2023-05-30] MEDS ORDERED: VANCOMYCIN IV PER PHARMACY 1 EACH MISC MISCELLANE PRN (10:15)
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
[2023-05-30] MEDS: VANCOMYCIN 1,000 MG in SODIUM CHLORIDE 0.9% 250 ML IVPB SCH ×2 (12:34→20:06)
[2023-05-30] MEDS: CYCLOBENZAPRINE 5 MG TAB PO PRN ×2 (12:58→22:41)
[2023-05-30] MEDS ORDERED: BENZOCAINE SPRAY 1 CAN MUCOUS MEM PRN (13:55)
--- NOTE | 2023-05-30 14:37 | XR ---
EXAMINATION TYPE: XR chest 1V portable DATE OF EXAM: 05/30/2023 2:15 PM CLINICAL INDICATION:Male, 57 years old with history of shortness of breath; COMPARISON: Chest radiographs from 11/09/2022 TECHNIQUE: XR chest 1V portable Frontal view of the chest. FINDINGS: Lungs/Pleura: There is no evidence of pleural effusion, focal consolidation, or pneumothorax. Pulmonary vascularity: Unremarkable. Heart/mediastinum: Cardiomediastinal silhouette is unremarkable. Musculoskeletal: No acute osseous pathology. IMPRESSION: No acute cardiopulmonary disease/process.
[2023-05-30] MEDS: BENZOCAINE/MENTHOL LOZENG 1 EACH LOZENGE MUCOUS MEM PRN (15:10)
[2023-05-30] MEDS: HYDROcodone/APAP 5-325MG 1 EACH TAB PO PRN ×2 (15:18→22:41)
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
[2023-05-31] MEDS: HYDROmorphone 1 MG/ML 1 ML SYRINGE IVP PRN (06:18)
[2023-05-31 08:42] LABS: Basophils % (A) 0 %; Eosinophils # (A) 0.5 k/uL (0-0.7); Eosinophils % (A) 6 %; HCT 32.5 % (39.0-53.0); Lymphocytes # (A) 1.6 k/uL (1.0-4.8); Lymphocytes % (A) 19 %; MCHC 33.8 g/dL (31.0-37.0); MCV 94.5 fL (80.0-100.0); Mean Platelet Volume 8.1; Monocytes # (A) 0.4 k/uL (0-1.0); Monocytes % (A) 5 %; Neutrophils # (A) 5.8 k/uL (1.3-7.7); Neutrophils % (A) 68 %; Platelet Count 248 k/uL (150-450); RBC 3.44 m/uL (4.30-5.90); RDW 12.5 % (11.5-15.5); WBC 8.5 k/uL (3.8-10.6)
[2023-05-31 08:57] LABS: African American GFR (CKD) >90 (>60 ml/min/1.73 sqM); Anion Gap 5 mmol/L; Blood Urea Nitrogen 12 mg/dL (9-20); Calcium 8.8 mg/dL (8.4-10.2); Carbon Dioxide 28 mmol/L (22-30); Chloride 101 mmol/L (98-107); Glucose 133 mg/dL (74-99); Magnesium 1.7 mg/dL (1.6-2.3); Non-African American GFR(CKD) >90 (>60 ml/min/1.73 sqM); Potassium 4.3 mmol/L (3.5-5.1); Sodium 134 mmol/L (137-145)
[2023-05-31] MEDS: SENNOSIDES-DOCUSATE SODIUM 1 EACH TAB PO SCH ×2 (10:40→21:43)
[2023-05-31] MEDS: THIAMINE 100 MG TAB PO SCH (10:40)
[2023-05-31] MEDS: VANCOMYCIN 1,000 MG in SODIUM CHLORIDE 0.9% 250 ML IVPB SCH ×2 (10:40→21:43)
[2023-05-31] MEDS: DULoxetine HCL 30 MG CAPSULE.DR PO SCH (10:41)
[2023-05-31] MEDS: CYCLOBENZAPRINE 5 MG TAB PO PRN (10:48)
[2023-05-31] MEDS: HYDROcodone/APAP 5-325MG 1 EACH TAB PO PRN (10:48)
[2023-05-31] MEDS: BENZOCAINE/MENTHOL LOZENG 1 EACH LOZENGE MUCOUS MEM PRN (10:48)
[2023-05-31] MEDS ORDERED: HYDROcodone/APAP 7.5-325MG 1 EACH TAB PO PRN (12:19)
[2023-05-31] MEDS: HYDROcodone/APAP 7.5-325MG 1 EACH TAB PO PRN ×2 (16:54→22:39)
[2023-05-31] MEDS: SODIUM CHLORIDE 0.9% 1,000 ML IV SCH (16:57)
[2023-05-31] MEDS ORDERED: LORazepam 1 MG TAB PO PRN (19:42)
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
[2023-06-01] MEDS ORDERED: VANCOMYCIN TROUGH DUE 1 EACH MISC MISCELLANE ONE (08:00)
[2023-06-01 10:18] LABS: African American GFR (CKD) >90 (>60 ml/min/1.73 sqM); Non-African American GFR(CKD) >90 (>60 ml/min/1.73 sqM)
[2023-06-01] MEDS: CYCLOBENZAPRINE 5 MG TAB PO PRN (10:23)
[2023-06-01] MEDS: THIAMINE 100 MG TAB PO SCH (10:23)
[2023-06-01] MEDS: SENNOSIDES-DOCUSATE SODIUM 1 EACH TAB PO SCH ×2 (10:23→21:07)
[2023-06-01] MEDS: HYDROcodone/APAP 7.5-325MG 1 EACH TAB PO PRN ×3 (10:23→21:07)
[2023-06-01] MEDS: DULoxetine HCL 30 MG CAPSULE.DR PO SCH (10:26)
[2023-06-01] MEDS: BENZOCAINE/MENTHOL LOZENG 1 EACH LOZENGE MUCOUS MEM PRN (10:28)
--- NOTE | 2023-06-01 10:32 | P.PN ---
Subjective Progress Note Date: 05/31/23 Principal diagnosis: S/P ORIF Left ankle fracture Patient is a pleasant 57 yo male seen at bedside this am. He is post op day #2 from ORIF of left ankle fracture per Dr. Baca. He states that he is doin okay but struglling with pain control. He denies new numbness, tingling, calf pain, fever, chills or other. Objective - Vital Signs Vital signs: Vital Signs Temp 98.6 F 05/31/23 08:00 Pulse 93 05/31/23 08:00 Resp 12 05/31/23 08:00 BP 105/70 05/31/23 08:00 Pulse Ox 93 L 05/31/23 08:00 FiO2 Intake & Output 05/30/23 05/31/23 05/31/23 18:59 06:59 18:59 Intake Total 340 Output Total 2650 Balance -2650 340 Intake: Oral 340 Output: Urine 2650 Other: Voiding Method Urinal Urinal # Voids 2 - Exam Inspection of LLE shows well padded splint in place. No signs of active bleeding or drainage. Digits are well perfused with less than 2 sec cap refill. He is able to wiggle all toes. Sensation intact in all digits as well. - Constitutional General appearance: Present: no acute distress - Labs CBC & Chem 7: 05/31/23 08:03 06/01/23 08:58 Labs: Abnormal Lab Results - Last 24 Hours (Table) 05/31/23 05/31/23 Range/Units 08:03 08:03 RBC 3.44 L (4.30-5.90) m/uL Hgb 11.0 L D (13.0-17.5) gm/dL Hct 32.5 L (39.0-53.0) % Sodium 134 L (137-145) mmol/L Glucose 133 H (74-99) mg/dL Assessment and Plan (1) Bimalleolar ankle fracture Narrative/Plan: He will continue with routine post op orthopedic protocol including wound care, splint care, elevation, ice, pain management, PT and medical management. Will also continue IV vancomycin. Will adjust his pain meds to try to achieve better pain control. Plan is to D/C to home in next 1-2 days Current Visit: Yes Status: Acute Priority: Medium Code(s): S82.843A - DISPLACED BIMALLEOLAR FRACTURE OF UNSP LOWER LEG, INIT SNOMED Code(s): 387621666 Time with Patient: Less than 30
[2023-06-01] MEDS: VANCOMYCIN 1,000 MG in SODIUM CHLORIDE 0.9% 250 ML IVPB SCH ×2 (10:33→21:07)
--- NOTE | 2023-06-01 14:02 | P.PN ---
Subjective Progress Note Date: 06/01/23 Principal diagnosis: S/P ORIF Left ankle fracture Patient is a pleasant 57 yo male seen at bedside this am. He is post op day #3 from ORIF of left ankle fracture per Dr. Baca. He states that he is doin okay today. his pain control is a little improved. He denies new numbness, tingling, calf pain, fever, chills or other. Objective - Vital Signs Vital signs: Vital Signs Temp 98.7 F 06/01/23 08:40 Pulse 88 06/01/23 08:40 Resp 17 06/01/23 08:40 BP 99/67 06/01/23 08:40 Pulse Ox 93 L 06/01/23 08:40 FiO2 Intake & Output 05/31/23 06/01/23 06/01/23 18:59 06:59 18:59 Intake Total 576 480 Output Total 1750 1000 1725 Balance -1174 -1000 -1245 Intake: Oral 576 480 Output: Urine 1750 1000 1725 Other: Voiding Method Urinal Urinal # Voids 3 - Exam Inspection of LLE shows well padded splint in place. No signs of active bleeding or drainage. Digits are well perfused with less than 2 sec cap refill. He is able to wiggle all toes. Sensation intact in all digits as well. - Constitutional General appearance: Present: no acute distress - Labs CBC & Chem 7: 05/31/23 08:03 06/01/23 08:58 Labs: Abnormal Lab Results - Last 24 Hours (Table) 06/01/23 Range/Units 08:58 Creatinine 0.62 L (0.66-1.25) mg/dL Assessment and Plan (1) Bimalleolar ankle fracture Narrative/Plan: He will continue with routine post op orthopedic protocol including wound care, splint care, elevation, ice, pain management, PT and medical management. Will also continue IV vancomycin through today. Plan was going to be to discharge to home however with his support and mobility he may benefit from rehab placement where a consult was placed and he may transfer tomorrow, Friday. Current Visit: Yes Status: Acute Priority: Medium Code(s): S82.843A - DISPLACED BIMALLEOLAR FRACTURE OF UNSP LOWER LEG, INIT SNOMED Code(s): 153554661 (2) Fracture dislocation of ankle joint Current Visit: Yes Status: Acute Code(s): S82.899A - OTH FRACTURE OF UNSP LOWER LEG, INIT FOR CLOS FX SNOMED Code(s): 991053058 Time with Patient: Less than 30
[2023-06-02 01:40] VITALS: TEMP 97.9
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
[2023-06-02] MEDS: THIAMINE 100 MG TAB PO SCH (08:20)
[2023-06-02] MEDS: SENNOSIDES-DOCUSATE SODIUM 1 EACH TAB PO SCH (08:21)
[2023-06-02] MEDS: HYDROcodone/APAP 7.5-325MG 1 EACH TAB PO PRN (08:21)
[2023-06-02] MEDS: DULoxetine HCL 30 MG CAPSULE.DR PO SCH (08:25)
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
[2023-06-02 11:59] LABS: Basophils # (A) 0.03 X 10*3/uL (0.00-0.10); Basophils % (A) 0.5 %; Eosinophils # (A) 0.63 X 10*3/uL (0.04-0.35); Eosinophils % (A) 9.7 %; HCT 35.4 % (39.6-50.0); HGB 11.9 g/dL (13.0-17.0); Lymphocytes # (A) 1.56 X 10*3/uL (0.90-5.00); Lymphocytes % (A) 24.1 %; MCH 31.2 pg (27.0-32.0); MCHC 33.6 g/dL (32.0-37.0); MCV 92.9 FL (80.0-97.0); Mean Platelet Volume 10.9 FL (9.5-12.2); Monocytes # (A) 0.57 X 10*3/uL (0.20-1.00); Monocytes % (A) 8.8 %; NRBC Per 100 WBC 0 X 10*3/uL (0.00-0.01); Neutrophils # (A) 3.66 X 10*3/uL (1.80-7.70); Neutrophils % (A) 56.6 %; Platelet Count 323 X 10*3/uL (140-440); RBC 3.81 X 10*6/uL (4.40-5.60); RDW 12.3 % (11.5-14.5); WBC 6.47 X 10*3/uL (4.50-10.00)
[2023-06-02 12:09] LABS: BUN/Creat Ratio 18.62 Ratio (12.00-20.00); Blood Urea Nitrogen 14.9 mg/dL (9.0-27.0); Calcium 9.3 mg/dL (8.7-10.3); Carbon Dioxide 26.6 mmol/L (21.6-31.8); Chloride 102 mmol/L (96-109); Glucose 92 mg/dL (70-110); Potassium 5.1 mmol/L (3.5-5.5); Sodium 139 mmol/L (135-145)
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
[2023-06-02 14:20] VITALS: BP 96/62; PULSE 95; RESP 17
== END 2023-06-02 16:19 | disposition home or self-care (01) | DRG 494 ==
LOC: EC 00:51 → 4SSUR 03:01
PROVIDERS: ADMIT Orthopaedic Surgery Orthopaedic Surgery of the Spine; ATTEND Orthopaedic Surgery Orthopaedic Surgery of the Spine
PROC: 0QSK04Z Reposition Left Fibula with Internal Fixation Device, Open Approach (ICD-10-PCS; 2023-05-29)
PROC: 0QSHXZZ Reposition Left Tibia, External Approach (ICD-10-PCS; principal; 2023-05-29 06:30)
PROC: 0QSH04Z Reposition Left Tibia with Internal Fixation Device, Open Approach (ICD-10-PCS; principal; 2023-05-29 06:30)
PROC: 0QSKXZZ Reposition Left Fibula, External Approach (ICD-10-PCS; principal; 2023-05-29 06:30)
DX: S82.842B Displaced bimalleolar fracture of left lower leg, initial encounter for open fracture type I or II (principal); W00.0XXA Fall on same level due to ice and snow, initial encounter; Y92.007 Garden or yard of unspecified non-institutional (private) residence as the place of occurrence of the external cause; F10.129 Alcohol abuse with intoxication, unspecified; Y90.8 Blood alcohol level of 240 mg/100 ml or more; F17.210 Nicotine dependence, cigarettes, uncomplicated; F32.A Depression, unspecified; F41.9 Anxiety disorder, unspecified; F19.10 Other psychoactive substance abuse, uncomplicated; G40.909 Epilepsy, unspecified, not intractable, without status epilepticus; G89.29 Other chronic pain; M50.30 Other cervical disc degeneration, unspecified cervical region; G83.21 Monoplegia of upper limb affecting right dominant side; V49.9XXS Car occupant (driver) (passenger) injured in unspecified traffic accident, sequela; S09.90XS Unspecified injury of head, sequela; M24.542 Contracture, left hand; R13.10 Dysphagia, unspecified; Z79.1 Long term (current) use of non-steroidal anti-inflammatories (NSAID); Z79.82 Long term (current) use of aspirin; Z79.899 Other long term (current) drug therapy; Z28.21 Immunization not carried out because of patient refusal; Z86.14 Personal history of Methicillin resistant Staphylococcus aureus infection
CPT/HCPCS: 27825; 36415; 70450; 71045; 72125; 80048; 80053; 80202; 80320; 82565; 83735; 85025; 96361; 96365; 96372; 96375; 96376; 99285